=== PATIENT | male | born 1985 | race Two or more races ===

== ENCOUNTER 2022-07-21 10:32 | Emergency (ER) | payer MEDICAID ==
[~2022-07-21] VITALS: Ht 152.4 cm; Wt 54.4 kg
--- NOTE | 2022-07-21 10:39 | NUR ---
Shadi huerta in EDM - 07/21/22 at 1113 by CYRUS BIB WITH LACERATION ON HIS L THUMB WITH A KITCHEN KNIFE AT 0930 THIS MORNING. PT STATED HE IS NOT UP TO DATE WITH HIS TDAP VACCINE. L hand/thumb area laceration w/ knife at 0930. not utd w/ tdap
[2022-07-21] MEDS ORDERED: LIDOCAINE HCL/MPF 1% 30 ML VIAL IJ ONE (10:46)
--- NOTE | 2022-07-21 11:00 | NUR ---
DR QUINTERO AT BEDSIDE
[2022-07-21] MEDS ORDERED: TDAP [DIPH/PERTUSSIS/TET] 0.5 ML VIAL IM ONE ×2 (11:10→11:30)
--- NOTE | 2022-07-21 11:13 | NUR ---
PT REFUSED TDAP VACCINE, AWARE.
--- NOTE | 2022-07-21 11:40 | NUR ---
Patient discharged to home in stable condition. Written and verbal after care instructions given. Patient verbalizes understanding of instruction.
[2022-07-21 11:41] VITALS: BP 122/71
== END 2022-07-21 11:41 | disposition home or self-care (01) ==
LOC: ER 10:36
DX: S61.012A Laceration without foreign body of left thumb without damage to nail, initial encounter (principal); W26.0XXA Contact with knife, initial encounter; Y93.89 Activity, other specified; Y92.89 Other specified places as the place of occurrence of the external cause; Y99.8 Other external cause status
CPT/HCPCS: 99282; 12011; J3490; 90715

== ENCOUNTER 2022-08-03 19:42 | Emergency (ER) | payer MEDICAID ==
[~2022-08-03] VITALS: Ht 152.4 cm; Wt 54.4 kg
[2022-08-03 20:36] VITALS: BP 113/67
--- NOTE | 2022-08-03 21:10 | NUR ---
Patient discharged to home in stable condition. Written and verbal after care instructions given. Patient verbalizes understanding of instruction. Pt ambulatory with a steady gait
== END 2022-08-03 21:11 | disposition home or self-care (01) ==
LOC: ER 19:45
DX: Z48.02 Encounter for removal of sutures (principal)